=== PATIENT | female | born 1975 | race Caucasian/White ===

== ENCOUNTER 2017-10-02 08:00 | Day surgery (SDC) | payer OTHER, MEDICARE ==
[2017-10-02] MEDS ORDERED: HEPARIN 1000 UNITS/ML 10 ML INJ (10:10)
[2017-10-02] MEDS ORDERED: IOHEXOL 300MG/ML 30 ML BTL (10:10)
[2017-10-02] MEDS ORDERED: MEPERIDINE 25 MG INJ IV (10:30)
[2017-10-02] MEDS ORDERED: METOCLOPRAMIDE 10 MG INJ IV (10:30)
[2017-10-02] MEDS ORDERED: ONDANSETRON 4 MG INJ IV ×2 (10:30→12:30)
[2017-10-02] MEDS ORDERED: hydrALAzine 20 MG INJ IV (10:30)
[2017-10-02] MEDS ORDERED: EPHEDrine SULFATE 50 MG/5 ML SYG IV (10:30)
[2017-10-02] MEDS ORDERED: DIPHENHYDRAMINE 50 MG INJ IV (10:30)
[2017-10-02] MEDS ORDERED: FENTAnyl 50 MCG/ML VIAL IV ×3 (10:30)
[2017-10-02] MEDS ORDERED: LABETALOL HCL 20MG INJ IV (10:30)
[2017-10-02] MEDS ORDERED: MIDAZOLAM 1 MG/ML 2 ML INJ IV (10:30)
[2017-10-02] MEDS ORDERED: PROPOFOL 20 ML (10:32)
[2017-10-02] MEDS ORDERED: CEFAZOLIN 1 GM INJ (10:33)
[2017-10-02] MEDS ORDERED: MIDAZOLAM 1 MG/ML 2 ML INJ (10:33)
[2017-10-02] MEDS ORDERED: FENTAnyl 50 MCG/ML VIAL (10:33)
[2017-10-02] MEDS ORDERED: LIDOCAINE 1% (MPF) 30 ML INJ (11:10)
[2017-10-02] MEDS: HEPARIN 1000 UNITS/ML 10 ML INJ IRR (11:44)
[2017-10-02] MEDS: LIDOCAINE 1% (MPF) 30 ML INJ (11:44)
[2017-10-02] MEDS ORDERED: IBUPROFEN 600 MG TAB PO (12:30)
[2017-10-02] MEDS ORDERED: OXYCODONE/ACETAMINOPHEN (5/325) TAB PO (12:30)
== END 2017-10-02 14:01 ==
LOC: SDS 08:00
DX: T82.898A Other specified complication of vascular prosthetic devices, implants and grafts, initial encounter (principal); Y84.8 Other medical procedures as the cause of abnormal reaction of the patient, or of later complication, without mention of misadventure at the time of the procedure; I12.0 Hypertensive chronic kidney disease with stage 5 chronic kidney disease or end stage renal disease; N18.6 End stage renal disease; E11.9 Type 2 diabetes mellitus without complications
CPT/HCPCS: 36561; 71045

== ENCOUNTER 2017-10-11 21:08 | Inpatient (IN) | payer MEDICARE, OTHER ==
[2017-10-12] MEDS ORDERED: PENDING SANTYL ORDER FOR WOUND CARE XX (01:00)
[2017-10-12] MEDS ORDERED: FLUDROCORTISONE 0.1 MG TAB PO (01:00)
[2017-10-12] MEDS ORDERED: FAMOTIDINE 20 MG INJ IV (01:00)
[2017-10-12] MEDS ORDERED: MICONAZOLE 2% 57 GM Ointment TOP (01:00)
[2017-10-12] MEDS ORDERED: BISACODYL 10 MG SUPP PR (01:00)
[2017-10-12] MEDS ORDERED: DICYCLOMINE 10 MG CAP PO (01:00)
[2017-10-12] MEDS ORDERED: FUROSEMIDE 40 MG INJ IV (01:00)
[2017-10-12] MEDS ORDERED: GLUCAGON 1 MG INJ IM (01:30)
[2017-10-12] MEDS ORDERED: LEVALBUTEROL (NEB) 1.25 MG/0.5 ML AMP INH (01:30)
[2017-10-12] MEDS ORDERED: GLUCOSE GEL 15 GRAM TUBE BUCCAL (01:30)
[2017-10-12] MEDS ORDERED: DEXTROSE 50% 50 ML SYRINGE IV ×2 (01:30)
[2017-10-12] MEDS ORDERED: morphine LIQ (10 MG/5 ML) CUP PO (01:30)
[2017-10-12] MEDS ORDERED: GLUCOSE GEL 15 GRAM TUBE PO ×2 (01:30)
[2017-10-12] MEDS: ACCUCHECK AT 2AM (Patients on SS coverage) XX (02:00)
[2017-10-12 04:44] LABS: ADD UMIC YES; UR ASCORBIC ACID NEGATIVE (NEGATIVE); UR BACTERIA FEW /HPF (NONE SEEN); UR BILIRUBIN (Dip) NEGATIVE (NEGATIVE); UR BLOOD (Dip) 1+ mg/dL (NEGATIVE); UR BUDDING YEAST MANY /HPF (NONE SEEN); UR CLARITY SLIGHTLY CLOUDY (CLEAR); UR COLOR YELLOW (YELLOW); UR GLUCOSE (Dip) NEGATIVE (NEGATIVE); UR KETONES (Dip) NEGATIVE (NEGATIVE); UR LEUKOCYTE ESTERASE (Dip) 1+ Leu/ul (NEGATIVE); UR NITRITE (Dip) NEGATIVE (NEGATIVE); UR RBC 83 /HPF (0-5); UR SPECIFIC GRAVITY (Dip) 1.009 (1.003-1.030); UR SQUAMOUS EPITHELIAL CELL MODERATE /HPF (FEW); UR TOTAL PROTEIN (Dip) 2+ mg/dl (NEGATIVE); UR UROBILINOGEN (Dip) NEGATIVE (NEGATIVE); UR WBC 13 /HPF (0-5)
[2017-10-12] MEDS: PANTOPRAZOLE (EC) 40 MG TAB PO ×2 (05:40→18:00)
[2017-10-12] MEDS ORDERED: NPH, HUMAN INSULIN ISOPHANE 3ML VIAL SC (07:05)
[2017-10-12] MEDS: Insulin NOVOLOG SS MODERATE Algorithm (SS with meals and bedtime) SC ×4 (07:35→21:00)
[2017-10-12] MEDS: PYRIDOXINE 50 MG TAB PO (09:00)
[2017-10-12] MEDS: RIFAMPIN 300 MG CAP PO (09:00)
[2017-10-12] MEDS: ISONIAZID 300 MG TAB PO (09:00)
[2017-10-12] MEDS: LINAGLIPTIN 5 MG TABLET PO (09:00)
[2017-10-12 09:22] LABS: ADD MAN DIFF? NO
[2017-10-12 09:28] LABS: BASOPHIL # 0.1 10^3/ul (0.0-0.1); BASOPHILS % 0.4 % (0.0-2.0); EOSINOPHILS # 0.2 10^3/ul (0.0-0.5); EOSINOPHILS % 1.2 % (0.0-7.0); HEMATOCRIT 24.7 % (37.0-47.0); HEMOGLOBIN 7.4 g/dl (12.0-16.0); LYMPHOCYTES # 4.4 10^3/ul (0.8-2.9); LYMPHOCYTES % 32.6 % (15.0-51.0); MEAN CORPUSCULAR VOLUME 93.6 fl (82.0-101.0); MEAN PLATELET VOLUME 9.2 fl (7.4-10.4); MONOCYTE # 0.9 10^3/ul (0.3-0.9); MONOCYTES % 6.9 % (0.0-11.0); NEUTROPHIL # 7.9 10^3/ul (1.6-7.5); PLATELET COUNT 414 10^3/UL (140-415); RED BLOOD COUNT 2.64 10^6/ul (4.20-5.40); RED CELL DISTRIBUTION WIDTH 17.3 % (11.5-14.5)
[2017-10-12 09:28] LABS: WHITE BLOOD COUNT 13.5 10^3/ul (4.8-10.8)
[2017-10-12 09:49] LABS: ALANINE AMINOTRANSFERASE 32 IU/L (13-69); ALBUMIN 2.6 g/dl (3.3-4.9); ALBUMIN/GLOBULIN RATIO 0.74; ALKALINE PHOSPHATASE 122 IU/L (42-121); ANION GAP 10 (8-16); ASPARTATE AMINO TRANSFERASE 40 IU/L (15-46); BLOOD UREA NITROGEN 38 mg/dl (7-20); CALCIUM 8.8 mg/dl (8.4-10.2); CARBON DIOXIDE 30 mmol/L (21-31); CHLORIDE 102 mmol/L (97-110); CREATININE 5.31 mg/dl (0.44-1.00); GLUCOSE 84 mg/dl (70-220); POTASSIUM 3.8 mmol/L (3.5-5.1); SODIUM 138 mmol/L (135-144); TOTAL PROTEIN 6.1 g/dl (6.1-8.1)
[2017-10-12] MEDS: SEVELAMER CARBONATE 0.8 GM PKT PO ×3 (09:58→17:42)
[2017-10-12] MEDS: DOCUSATE SODIUM 100 MG CAP PO ×2 (09:58→22:01)
[2017-10-12] MEDS: LUBIPROSTONE 24 MCG CAP PO ×2 (09:58→22:45)
[2017-10-12] MEDS: METOCLOPRAMIDE 5 MG TAB PO ×3 (09:58→17:43)
[2017-10-12] MEDS: NYSTATIN 30 GM POWDER BTL TOP ×2 (09:59→22:14)
[2017-10-12] MEDS: NOVOLOG INSULIN ASPART SC ×3 (10:02→22:09)
[2017-10-12] MEDS: SUCRALFATE 1 GM TAB PO ×4 (10:59→22:00)
[2017-10-12] MEDS: predniSONE 20 MG TAB PO (10:59)
[2017-10-12] MEDS: NPH, HUMAN INSULIN ISOPHANE 3ML VIAL SC (11:10)
[2017-10-12 13:18] LABS: HEPATITIS B SURFACE ANTIGEN NEGATIVE (NEGATIVE)
[2017-10-12] MEDS: EPOETIN 10000 UNITS/1 ML INJ (ESRD) SC (17:44)
[2017-10-12] MEDS: HEPARIN 1000 UNITS/ML 10 ML INJ CATHETER ×2 (20:30→21:52)
[2017-10-12] MEDS: [UNRECOGNIZED DRUG - OTHER] TOP (21:00)
[2017-10-12] MEDS: SENNA TAB PO (22:01)
[2017-10-12] MEDS: INSULIN DETEMIR [LEVEMIR] 3ML CART SC (22:09)
[2017-10-12] MEDS: DIPHENHYDRAMINE 50 MG INJ IV (23:46)
[2017-10-13] MEDS: GUAIFENESIN 20 MG/ML 5ML CUP PO ×2 (00:07→15:16)
[2017-10-13] MEDS: ACCUCHECK AT 2AM (Patients on SS coverage) XX (02:00)
[2017-10-13] MEDS: PANTOPRAZOLE (EC) 40 MG TAB PO ×2 (06:15→18:06)
[2017-10-13] MEDS: SUCRALFATE 1 GM TAB PO ×4 (06:16→21:13)
[2017-10-13] MEDS: METOCLOPRAMIDE 5 MG TAB PO ×3 (06:16→17:08)
[2017-10-13] MEDS: Insulin NOVOLOG SS MODERATE Algorithm (SS with meals and bedtime) SC ×4 (07:35→21:00)
[2017-10-13] MEDS: NPH, HUMAN INSULIN ISOPHANE 3ML VIAL SC (08:35)
[2017-10-13] MEDS: NOVOLOG INSULIN ASPART SC ×3 (08:37→17:13)
[2017-10-13] MEDS: SEVELAMER CARBONATE 0.8 GM PKT PO ×3 (08:37→17:10)
[2017-10-13] MEDS: ISONIAZID 300 MG TAB PO (08:38)
[2017-10-13] MEDS: DOCUSATE SODIUM 100 MG CAP PO ×2 (08:38→21:08)
[2017-10-13] MEDS: LUBIPROSTONE 24 MCG CAP PO ×2 (08:38→21:08)
[2017-10-13] MEDS: RIFAMPIN 300 MG CAP PO (08:39)
[2017-10-13] MEDS: LINAGLIPTIN 5 MG TABLET PO (08:39)
[2017-10-13] MEDS: PYRIDOXINE 50 MG TAB PO (08:39)
[2017-10-13] MEDS: predniSONE 20 MG TAB PO (08:39)
[2017-10-13 09:15] LABS: WHITE BLOOD COUNT 7.4 10^3/ul (4.8-10.8)
[2017-10-13 09:15] LABS: ABNORMAL IP MESSAGE 1; HEMATOCRIT 22.6 % (37.0-47.0); MEAN CORPUSCULAR HEMOGLOBIN 27.8 pg (29.0-33.0); MEAN CORPUSCULAR HGB CONC 30.1 g/dl (32.0-37.0); MEAN CORPUSCULAR VOLUME 92.2 fl (82.0-101.0); MEAN PLATELET VOLUME 9.1 fl (7.4-10.4); PLATELET COUNT 358 10^3/UL (140-415); RED BLOOD COUNT 2.45 10^6/ul (4.20-5.40); RED CELL DISTRIBUTION WIDTH 17.2 % (11.5-14.5)
[2017-10-13 09:30] LABS: ANION GAP 9 (8-16); BLOOD UREA NITROGEN 15 mg/dl (7-20); CALCIUM 8.3 mg/dl (8.4-10.2); CARBON DIOXIDE 31 mmol/L (21-31); CHLORIDE 102 mmol/L (97-110); CREATININE 2.83 mg/dl (0.44-1.00); GLUCOSE 69 mg/dl (70-220); MAGNESIUM 1.9 mg/dl (1.7-2.5); PHOSPHORUS 2.5 mg/dl (2.5-4.9); POTASSIUM 3.6 mmol/L (3.5-5.1); SODIUM 138 mmol/L (135-144)
[2017-10-13 09:42] LABS: POSITIVE DIFF @See below
[2017-10-13 09:44] LABS: ADD MAN DIFF? YES; HEMOGLOBIN 6.8 g/dl (12.0-16.0)
[2017-10-13] MEDS: NYSTATIN 30 GM POWDER BTL TOP ×2 (10:15→21:14)
[2017-10-13] MEDS: ETHAMBUTOL 400 MG TAB PO (10:16)
[2017-10-13 11:17] LABS: ANISOCYTOSIS 2+ (0-0); EOSINOPHILS % (M) 6 % (0-7); LYMPHOCYTES #M 3.2 10^3/ul (0.8-2.9); LYMPHOCYTES % (M) 44 % (15-51); MICROCYTOSIS 2+ (0-0); MONOCYTE #M 0.5 10^3/ul (0.3-0.9); MONOCYTES % (M) 7 % (0-11); MYELOCYTES % (M) 1 % (0-0); PLATELET ESTIMATE NORMAL; POLYCHROMASIA 1+ (0-0); REACTIVE LYMPHOCYTES #M 0.2 10^3/ul (0.0-0.0); REACTIVE LYMPHOCYTES% (M) 3 % (0-0); SEGMENTED NEUTROPHILS (M) % 39 % (39-77); SMUDGE%M 26 % (0-0)
[2017-10-13] MEDS: EPOETIN 10000 UNITS/1 ML INJ (ESRD) SC (11:54)
[2017-10-13 14:01] LABS: HEMOGLOBIN 7.7 g/dl (12.0-16.0)
[2017-10-13 14:28] LABS: IRON 48 ug/dl (35-150)
[2017-10-13 14:37] LABS: % IRON SATURATION 25 % SAT (22-52); TOTAL IRON BINDING CAPACITY 189 ug/dl (241-421)
[2017-10-13] MEDS: [UNRECOGNIZED DRUG - OTHER] TOP (21:00)
[2017-10-13] MEDS: SENNA TAB PO (21:08)
[2017-10-13] MEDS: INSULIN DETEMIR [LEVEMIR] 3ML CART SC (21:11)
[2017-10-14] MEDS: ACCUCHECK AT 2AM (Patients on SS coverage) XX (02:00)
[2017-10-14] MEDS: PANTOPRAZOLE (EC) 40 MG TAB PO ×2 (05:41→18:00)
[2017-10-14] MEDS: SUCRALFATE 1 GM TAB PO ×4 (06:39→20:45)
[2017-10-14] MEDS: Insulin NOVOLOG SS MODERATE Algorithm (SS with meals and bedtime) SC ×4 (07:35→20:46)
[2017-10-14 07:42] LABS: WHITE BLOOD COUNT 9.1 10^3/ul (4.8-10.8)
[2017-10-14 07:42] LABS: ABNORMAL IP MESSAGE 1; HEMATOCRIT 22.7 % (37.0-47.0); MEAN CORPUSCULAR HEMOGLOBIN 28.2 pg (29.0-33.0); MEAN CORPUSCULAR HGB CONC 30.4 g/dl (32.0-37.0); MEAN CORPUSCULAR VOLUME 92.7 fl (82.0-101.0); MEAN PLATELET VOLUME 9.1 fl (7.4-10.4); PLATELET COUNT 368 10^3/UL (140-415); RED BLOOD COUNT 2.45 10^6/ul (4.20-5.40); RED CELL DISTRIBUTION WIDTH 17.2 % (11.5-14.5)
[2017-10-14 07:57] LABS: POSITIVE DIFF @See below
[2017-10-14 07:59] LABS: ADD MAN DIFF? YES; HEMOGLOBIN 6.9 g/dl (12.0-16.0)
[2017-10-14 08:09] LABS: ANION GAP 7 (8-16); BLOOD UREA NITROGEN 20 mg/dl (7-20); CALCIUM 8.3 mg/dl (8.4-10.2); CARBON DIOXIDE 30 mmol/L (21-31); CHLORIDE 103 mmol/L (97-110); CREATININE 3.71 mg/dl (0.44-1.00); GLUCOSE 87 mg/dl (70-220); PHOSPHORUS 2.5 mg/dl (2.5-4.9); POTASSIUM 3.4 mmol/L (3.5-5.1); SODIUM 137 mmol/L (135-144)
[2017-10-14] MEDS: NOVOLOG INSULIN ASPART SC ×4 (08:45→17:35)
[2017-10-14] MEDS: NPH, HUMAN INSULIN ISOPHANE 3ML VIAL SC (08:47)
[2017-10-14 09:42] LABS: ANISOCYTOSIS 1+ (0-0); LYMPHOCYTES #M 2.8 10^3/ul (0.8-2.9); LYMPHOCYTES % (M) 31 % (15-51); MICROCYTOSIS 1+ (0-0); MONOCYTE #M 0.8 10^3/ul (0.3-0.9); MONOCYTES % (M) 9 % (0-11); MYELOCYTES % (M) 1 % (0-0); PLATELET ESTIMATE NORMAL; POLYCHROMASIA 1+ (0-0); SEGMENTED NEUTROPHILS (M) % 59 % (39-77); SMUDGE%M 47 % (0-0)
[2017-10-14] MEDS: SEVELAMER CARBONATE 0.8 GM PKT PO ×3 (10:55→17:28)
[2017-10-14] MEDS: LUBIPROSTONE 24 MCG CAP PO ×2 (10:59→20:57)
[2017-10-14] MEDS: DOCUSATE SODIUM 100 MG CAP PO ×2 (10:59→20:45)
[2017-10-14] MEDS: ISONIAZID 300 MG TAB PO (10:59)
[2017-10-14] MEDS: predniSONE 20 MG TAB PO (10:59)
[2017-10-14] MEDS: PYRIDOXINE 50 MG TAB PO (10:59)
[2017-10-14] MEDS: RIFAMPIN 300 MG CAP PO (11:00)
[2017-10-14] MEDS: LINAGLIPTIN 5 MG TABLET PO (11:00)
[2017-10-14] MEDS: NYSTATIN 30 GM POWDER BTL TOP ×2 (11:00→20:53)
[2017-10-14] MEDS: METOCLOPRAMIDE 5 MG TAB PO ×3 (11:00→17:05)
[2017-10-14 14:03] LABS: HEMATOCRIT 26.5 % (37.0-47.0); HEMOGLOBIN 7.8 g/dl (12.0-16.0)
[2017-10-14] MEDS: SENNA TAB PO (20:45)
[2017-10-14] MEDS: INSULIN DETEMIR [LEVEMIR] 3ML CART SC (20:51)
[2017-10-15] MEDS: ACCUCHECK AT 2AM (Patients on SS coverage) XX (01:50)
[2017-10-15] MEDS: SOD CHLORIDE 0.9% 500 ML IV (03:07)
[2017-10-15] MEDS: PANTOPRAZOLE (EC) 40 MG TAB PO ×2 (06:25→19:36)
[2017-10-15] MEDS: METOCLOPRAMIDE 5 MG TAB PO ×3 (06:25→17:51)
[2017-10-15] MEDS: SUCRALFATE 1 GM TAB PO ×4 (06:25→20:01)
[2017-10-15 06:58] LABS: ADD MAN DIFF? NO
[2017-10-15 07:04] LABS: BASOPHIL # 0.1 10^3/ul (0.0-0.1); BASOPHILS % 0.6 % (0.0-2.0); EOSINOPHILS # 0.1 10^3/ul (0.0-0.5); EOSINOPHILS % 0.8 % (0.0-7.0); HEMATOCRIT 23.8 % (37.0-47.0); LYMPHOCYTES # 4.4 10^3/ul (0.8-2.9); LYMPHOCYTES % 49.9 % (15.0-51.0); MEAN CORPUSCULAR HEMOGLOBIN 27.6 pg (29.0-33.0); MEAN CORPUSCULAR HGB CONC 29.4 g/dl (32.0-37.0); MEAN CORPUSCULAR VOLUME 93.7 fl (82.0-101.0); MEAN PLATELET VOLUME 8.9 fl (7.4-10.4); MONOCYTE # 1.1 10^3/ul (0.3-0.9); NEUTROPHIL # 2.9 10^3/ul (1.6-7.5); NEUTROPHILS % 32.8 % (39.0-77.0); PLATELET COUNT 380 10^3/UL (140-415); RED BLOOD COUNT 2.54 10^6/ul (4.20-5.40); RED CELL DISTRIBUTION WIDTH 17.5 % (11.5-14.5)
[2017-10-15 07:04] LABS: WHITE BLOOD COUNT 8.8 10^3/ul (4.8-10.8)
[2017-10-15] MEDS: Insulin NOVOLOG SS MODERATE Algorithm (SS with meals and bedtime) SC ×4 (07:35→21:00)
[2017-10-15] MEDS: LINAGLIPTIN 5 MG TABLET PO (08:38)
[2017-10-15] MEDS: RIFAMPIN 300 MG CAP PO (08:38)
[2017-10-15] MEDS: SEVELAMER CARBONATE 0.8 GM PKT PO ×3 (08:38→17:51)
[2017-10-15] MEDS: DOCUSATE SODIUM 100 MG CAP PO ×2 (08:39→20:01)
[2017-10-15] MEDS: predniSONE 20 MG TAB PO (08:39)
[2017-10-15] MEDS: ISONIAZID 300 MG TAB PO (08:39)
[2017-10-15] MEDS: NOVOLOG INSULIN ASPART SC ×3 (08:41→17:54)
[2017-10-15] MEDS: NPH, HUMAN INSULIN ISOPHANE 3ML VIAL SC (08:42)
[2017-10-15] MEDS: NYSTATIN 30 GM POWDER BTL TOP ×2 (09:00→21:00)
[2017-10-15] MEDS: PYRIDOXINE 50 MG TAB PO (12:28)
[2017-10-15] MEDS: LUBIPROSTONE 24 MCG CAP PO ×2 (12:28→20:01)
[2017-10-15] MEDS ORDERED: EPOETIN 10000 UNITS/1 ML INJ (ESRD) SC (17:00)
[2017-10-15] MEDS: EPOETIN 10000 UNITS/1 ML INJ (ESRD) SC (17:49)
[2017-10-15] MEDS: EPOETIN 2000 UNITS/1 ML INJ (ESRD) SC (17:51)
[2017-10-15] MEDS: IVABRADINE HCL 5 MG TABLET PO (19:36)
[2017-10-15] MEDS: SENNA TAB PO (20:01)
[2017-10-15] MEDS: ACETAMINOPHEN 325 MG TAB PO (20:01)
[2017-10-15] MEDS: INSULIN DETEMIR [LEVEMIR] 3ML CART SC (20:06)
[2017-10-16] MEDS: ACCUCHECK AT 2AM (Patients on SS coverage) XX (02:00)
[2017-10-16] MEDS: PANTOPRAZOLE (EC) 40 MG TAB PO ×3 (05:54→18:00)
[2017-10-16 06:51] LABS: WHITE BLOOD COUNT 8.9 10^3/ul (4.8-10.8)
[2017-10-16 06:51] LABS: ABNORMAL IP MESSAGE 1; HEMATOCRIT 22.8 % (37.0-47.0); MEAN CORPUSCULAR HEMOGLOBIN 29.8 pg (29.0-33.0); MEAN CORPUSCULAR HGB CONC 30.7 g/dl (32.0-37.0); NUCLEATED RED BLOOD CELLS% 0.2 /100WBC (0.0-0.0); PLATELET COUNT 398 10^3/UL (140-415); RED BLOOD COUNT 2.35 10^6/ul (4.20-5.40); RED CELL DISTRIBUTION WIDTH 17.9 % (11.5-14.5)
[2017-10-16 06:55] LABS: POSITIVE DIFF @See below
[2017-10-16 06:56] LABS: ADD MAN DIFF? YES
[2017-10-16] MEDS: Insulin NOVOLOG SS MODERATE Algorithm (SS with meals and bedtime) SC ×5 (07:35→21:00)
[2017-10-16] MEDS: NOVOLOG INSULIN ASPART SC ×4 (08:40→17:41)
[2017-10-16] MEDS: NPH, HUMAN INSULIN ISOPHANE 3ML VIAL SC (08:49)
[2017-10-16] MEDS: METOCLOPRAMIDE 5 MG TAB PO ×5 (08:50→17:38)
[2017-10-16] MEDS: SUCRALFATE 1 GM TAB PO ×5 (08:50→20:59)
[2017-10-16] MEDS: SEVELAMER CARBONATE 0.8 GM PKT PO ×5 (08:50→21:05)
[2017-10-16] MEDS: DOCUSATE SODIUM 100 MG CAP PO ×2 (08:51→20:59)
[2017-10-16] MEDS: predniSONE 20 MG TAB PO (08:51)
[2017-10-16] MEDS: RIFAMPIN 300 MG CAP PO (08:51)
[2017-10-16] MEDS: ISONIAZID 300 MG TAB PO (08:51)
[2017-10-16] MEDS: LINAGLIPTIN 5 MG TABLET PO (08:52)
[2017-10-16] MEDS: IVABRADINE HCL 5 MG TABLET PO ×2 (08:57→21:00)
[2017-10-16] MEDS: ETHAMBUTOL 400 MG TAB PO ×3 (09:00→13:37)
[2017-10-16] MEDS: LUBIPROSTONE 24 MCG CAP PO ×3 (09:00→20:59)
[2017-10-16 09:17] LABS: ANISOCYTOSIS 2+ (0-0); BAND NEUTROPHILS % (M) 1 % (0-4); BASOPHILS % (M) 1 % (0-2); EOSINOPHILS % (M) 1 % (0-7); ERYTHROBLAST% (NRBC) (M) 1 % (0-0); GIANT THROMBO% (M) 1 % (0-0); LYMPHOCYTES #M 3.6 10^3/ul (0.8-2.9); LYMPHOCYTES % (M) 41 % (15-51); MICROCYTOSIS 2+ (0-0); MONOCYTE #M 0.2 10^3/ul (0.3-0.9); MONOCYTES % (M) 3 % (0-11); PLATELET ESTIMATE NORMAL; POLYCHROMASIA 3+ (0-0); SEG NEUT #M 4.7 10^3/ul (1.6-7.5); SEGMENTED NEUTROPHILS (M) % 53 % (39-77); SMUDGE%M 16 % (0-0)
[2017-10-16] MEDS: PYRIDOXINE 50 MG TAB PO (12:45)
[2017-10-16] MEDS: NYSTATIN 30 GM POWDER BTL TOP ×2 (12:57→21:00)
[2017-10-16] MEDS: MAGNESIUM HYDROXIDE 30ML CUP PO ×2 (13:36→13:44)
[2017-10-16] MEDS: HEPARIN 1000 UNITS/ML 10 ML INJ CATHETER (20:27)
[2017-10-16] MEDS: SENNA TAB PO (20:59)
[2017-10-16] MEDS: INSULIN DETEMIR [LEVEMIR] 3ML CART SC (21:04)
[2017-10-17] MEDS: GUAIFENESIN 20 MG/ML 5ML CUP PO ×2 (00:24→23:23)
[2017-10-17] MEDS: ACCUCHECK AT 2AM (Patients on SS coverage) XX (02:00)
[2017-10-17] MEDS: PANTOPRAZOLE (EC) 40 MG TAB PO ×2 (06:12→18:00)
[2017-10-17] MEDS: Insulin NOVOLOG SS MODERATE Algorithm (SS with meals and bedtime) SC ×4 (07:35→21:00)
[2017-10-17 07:41] LABS: HEMATOCRIT 23.1 % (37.0-47.0)
[2017-10-17] MEDS: SEVELAMER CARBONATE 0.8 GM PKT PO ×4 (08:36→21:08)
[2017-10-17] MEDS: IVABRADINE HCL 5 MG TABLET PO ×2 (08:36→21:09)
[2017-10-17] MEDS: METOCLOPRAMIDE 5 MG TAB PO ×3 (08:36→17:05)
[2017-10-17] MEDS: SUCRALFATE 1 GM TAB PO ×4 (08:36→21:09)
[2017-10-17] MEDS: NOVOLOG INSULIN ASPART SC ×3 (08:38→17:35)
[2017-10-17] MEDS: NPH, HUMAN INSULIN ISOPHANE 3ML VIAL SC (08:44)
[2017-10-17] MEDS: DOCUSATE SODIUM 100 MG CAP PO ×2 (08:45→21:14)
[2017-10-17] MEDS: predniSONE 10 MG TAB PO (08:45)
[2017-10-17] MEDS: LUBIPROSTONE 24 MCG CAP PO ×2 (08:45→21:09)
[2017-10-17] MEDS: ISONIAZID 300 MG TAB PO (08:45)
[2017-10-17] MEDS: PYRIDOXINE 50 MG TAB PO (08:45)
[2017-10-17] MEDS: RIFAMPIN 300 MG CAP PO (08:45)
[2017-10-17] MEDS: LINAGLIPTIN 5 MG TABLET PO (08:46)
[2017-10-17] MEDS: NYSTATIN 30 GM POWDER BTL TOP ×2 (09:00→21:00)
[2017-10-17] MEDS: SOD FERRIC GLUC COMPLX 125 MG in SOD CHLORIDE 0.9% 100 ML IVPB (13:12)
[2017-10-17] MEDS ORDERED: EPOETIN 4000 UNITS/1 ML INJ (ESRD) SC (17:00)
[2017-10-17] MEDS: EPOETIN 10000 UNITS/1 ML INJ (ESRD) SC (18:16)
[2017-10-17] MEDS: EPOETIN 2000 UNITS/1 ML INJ (ESRD) SC (18:17)
[2017-10-17] MEDS: SENNA TAB PO (21:09)
[2017-10-17] MEDS: INSULIN DETEMIR [LEVEMIR] 3ML CART SC (21:13)
[2017-10-18] MEDS: ACCUCHECK AT 2AM (Patients on SS coverage) XX (02:00)
[2017-10-18] MEDS: PANTOPRAZOLE (EC) 40 MG TAB PO ×2 (05:44→17:29)
[2017-10-18 07:30] LABS: HEMATOCRIT 22.9 % (37.0-47.0)
[2017-10-18 07:33] LABS: HEMOGLOBIN 6.8 g/dl (12.0-16.0)
[2017-10-18] MEDS: Insulin NOVOLOG SS MODERATE Algorithm (SS with meals and bedtime) SC ×4 (07:35→21:00)
[2017-10-18] MEDS: SEVELAMER CARBONATE 0.8 GM PKT PO ×3 (08:40→17:36)
[2017-10-18] MEDS: IVABRADINE HCL 5 MG TABLET PO ×2 (08:40→17:29)
[2017-10-18] MEDS: METOCLOPRAMIDE 5 MG TAB PO ×3 (08:40→17:29)
[2017-10-18] MEDS: SUCRALFATE 1 GM TAB PO ×3 (08:40→17:30)
[2017-10-18] MEDS: NOVOLOG INSULIN ASPART SC ×3 (08:47→17:34)
[2017-10-18] MEDS: NYSTATIN 30 GM POWDER BTL TOP (09:00)
[2017-10-18] MEDS: NPH, HUMAN INSULIN ISOPHANE 3ML VIAL SC (09:21)
[2017-10-18] MEDS: LUBIPROSTONE 24 MCG CAP PO (10:04)
[2017-10-18] MEDS: RIFAMPIN 300 MG CAP PO (10:05)
[2017-10-18] MEDS: predniSONE 10 MG TAB PO (10:05)
[2017-10-18] MEDS: LINAGLIPTIN 5 MG TABLET PO (10:05)
[2017-10-18] MEDS: PYRIDOXINE 50 MG TAB PO (10:06)
[2017-10-18] MEDS: DOCUSATE SODIUM 100 MG CAP PO (10:06)
[2017-10-18] MEDS: SOD FERRIC GLUC COMPLX 125 MG in SOD CHLORIDE 0.9% 100 ML IVPB (10:18)
[2017-10-18] MEDS: ETHAMBUTOL 400 MG TAB PO (10:21)
[2017-10-18] MEDS: ISONIAZID 300 MG TAB PO (10:26)
[2017-10-18] MEDS: morphine 2 MG INJ IV (12:26)
[2017-10-18 14:53] LABS: HEMATOCRIT 25.7 % (37.0-47.0); HEMOGLOBIN 7.6 g/dl (12.0-16.0)
[2017-10-18] MEDS: MIDODRINE 5 MG TAB PO (18:24)
[2017-10-18] MEDS: HEPARIN 1000 UNITS/ML 10 ML INJ CATHETER (23:51)
[2017-10-19] MEDS: LUBIPROSTONE 24 MCG CAP PO ×3 (00:10→21:23)
[2017-10-19] MEDS: SUCRALFATE 1 GM TAB PO ×5 (00:10→21:23)
[2017-10-19] MEDS: DOCUSATE SODIUM 100 MG CAP PO ×3 (00:10→21:23)
[2017-10-19] MEDS: SENNA TAB PO ×2 (00:11→21:23)
[2017-10-19] MEDS: INSULIN DETEMIR [LEVEMIR] 3ML CART SC ×2 (00:21→21:23)
[2017-10-19] MEDS: NYSTATIN 30 GM POWDER BTL TOP ×3 (00:25→21:25)
[2017-10-19] MEDS: ACCUCHECK AT 2AM (Patients on SS coverage) XX (02:00)
[2017-10-19] MEDS: PANTOPRAZOLE (EC) 40 MG TAB PO ×2 (06:51→17:22)
[2017-10-19] MEDS: Insulin NOVOLOG SS MODERATE Algorithm (SS with meals and bedtime) SC ×4 (07:35→21:00)
[2017-10-19] MEDS: IVABRADINE HCL 5 MG TABLET PO ×2 (08:24→16:35)
[2017-10-19] MEDS: SEVELAMER CARBONATE 0.8 GM PKT PO ×3 (08:24→16:35)
[2017-10-19] MEDS: METOCLOPRAMIDE 5 MG TAB PO ×3 (08:24→16:35)
[2017-10-19] MEDS: NOVOLOG INSULIN ASPART SC ×3 (08:34→16:43)
[2017-10-19] MEDS: NPH, HUMAN INSULIN ISOPHANE 3ML VIAL SC (08:49)
[2017-10-19] MEDS: PYRIDOXINE 50 MG TAB PO (08:49)
[2017-10-19] MEDS: predniSONE 10 MG TAB PO (08:50)
[2017-10-19] MEDS: ISONIAZID 300 MG TAB PO (08:50)
[2017-10-19] MEDS: RIFAMPIN 300 MG CAP PO (08:50)
[2017-10-19] MEDS: LINAGLIPTIN 5 MG TABLET PO (08:50)
[2017-10-19] MEDS: SOD FERRIC GLUC COMPLX 125 MG in SOD CHLORIDE 0.9% 100 ML IVPB (09:02)
[2017-10-19] MEDS ORDERED: morphine LIQ (10 MG/5 ML) CUP PO (17:00)
[2017-10-19] MEDS: EPOETIN 10000 UNITS/1 ML INJ (ESRD) SC (17:22)
[2017-10-19] MEDS: EPOETIN 2000 UNITS/1 ML INJ (ESRD) SC (17:23)
[2017-10-20] MEDS: ACCUCHECK AT 2AM (Patients on SS coverage) XX (02:00)
[2017-10-20] MEDS: PANTOPRAZOLE (EC) 40 MG TAB PO ×2 (05:44→17:46)
[2017-10-20 06:20] LABS: ADD MAN DIFF? NO
[2017-10-20 06:28] LABS: ABNORMAL IP MESSAGE 1; BASOPHILS % 0.4 % (0.0-2.0); EOSINOPHILS # 0.1 10^3/ul (0.0-0.5); EOSINOPHILS % 0.7 % (0.0-7.0); HEMATOCRIT 23.4 % (37.0-47.0); LYMPHOCYTES # 4.1 10^3/ul (0.8-2.9); LYMPHOCYTES % 43.4 % (15.0-51.0); MEAN CORPUSCULAR HEMOGLOBIN 28.4 pg (29.0-33.0); MEAN CORPUSCULAR HGB CONC 29.5 g/dl (32.0-37.0); MEAN CORPUSCULAR VOLUME 96.3 fl (82.0-101.0); MEAN PLATELET VOLUME 9.1 fl (7.4-10.4); MONOCYTE # 1.1 10^3/ul (0.3-0.9); MONOCYTES % 11.3 % (0.0-11.0); NEUTROPHIL # 3.8 10^3/ul (1.6-7.5); NEUTROPHILS % 40.2 % (39.0-77.0); NUCLEATED RED BLOOD CELLS% 0.4 /100WBC (0.0-0.0); PLATELET COUNT 323 10^3/UL (140-415); RED BLOOD COUNT 2.43 10^6/ul (4.20-5.40); RED CELL DISTRIBUTION WIDTH 20.6 % (11.5-14.5)
[2017-10-20 06:28] LABS: WHITE BLOOD COUNT 9.5 10^3/ul (4.8-10.8)
[2017-10-20 07:06] LABS: HEMOGLOBIN 6.9 g/dl (12.0-16.0); POSITIVE DIFF @See below
[2017-10-20 07:09] LABS: ALANINE AMINOTRANSFERASE 63 IU/L (13-69); ALBUMIN 2.4 g/dl (3.3-4.9); ALBUMIN/GLOBULIN RATIO 0.77; ALKALINE PHOSPHATASE 122 IU/L (42-121); ANION GAP 7 (8-16); ASPARTATE AMINO TRANSFERASE 46 IU/L (15-46); BLOOD UREA NITROGEN 9 mg/dl (7-20); CALCIUM 7.9 mg/dl (8.4-10.2); CARBON DIOXIDE 28 mmol/L (21-31); CHLORIDE 107 mmol/L (97-110); CREATININE 3.31 mg/dl (0.44-1.00); GLUCOSE 106 mg/dl (70-220); SODIUM 139 mmol/L (135-144); TOTAL PROTEIN 5.5 g/dl (6.1-8.1)
[2017-10-20 07:14] LABS: POTASSIUM 2.9 mmol/L (3.5-5.1)
[2017-10-20] MEDS: Insulin NOVOLOG SS MODERATE Algorithm (SS with meals and bedtime) SC ×4 (07:35→20:45)
[2017-10-20] MEDS: NOVOLOG INSULIN ASPART SC ×3 (09:25→17:49)
[2017-10-20] MEDS: ETHAMBUTOL 400 MG TAB PO (09:26)
[2017-10-20] MEDS: PYRIDOXINE 50 MG TAB PO (09:26)
[2017-10-20] MEDS: NPH, HUMAN INSULIN ISOPHANE 3ML VIAL SC (09:27)
[2017-10-20] MEDS: RIFAMPIN 300 MG CAP PO (09:27)
[2017-10-20] MEDS: IVABRADINE HCL 5 MG TABLET PO ×2 (09:27→18:35)
[2017-10-20] MEDS: LUBIPROSTONE 24 MCG CAP PO ×2 (09:27→20:45)
[2017-10-20] MEDS: LINAGLIPTIN 5 MG TABLET PO (09:28)
[2017-10-20] MEDS: SEVELAMER CARBONATE 0.8 GM PKT PO ×3 (09:28→17:46)
[2017-10-20] MEDS: METOCLOPRAMIDE 5 MG TAB PO ×3 (09:28→17:46)
[2017-10-20] MEDS: DOCUSATE SODIUM 100 MG CAP PO ×2 (09:28→20:44)
[2017-10-20] MEDS: SUCRALFATE 1 GM TAB PO ×4 (09:29→20:45)
[2017-10-20] MEDS: predniSONE 10 MG TAB PO (09:29)
[2017-10-20] MEDS: ISONIAZID 300 MG TAB PO (09:29)
[2017-10-20] MEDS: NYSTATIN 30 GM POWDER BTL TOP ×2 (09:30→20:45)
[2017-10-20] MEDS: SOD FERRIC GLUC COMPLX 125 MG in SOD CHLORIDE 0.9% 100 ML IVPB (10:26)
[2017-10-20] MEDS: POTASSIUM CHLORIDE (SR) 20 MEQ TAB PO (10:49)
[2017-10-20] MEDS: EPOETIN 10000 UNITS/1 ML INJ (ESRD) SC (12:22)
[2017-10-20] MEDS: CIPROFLOXACIN 250 MG TAB PO (17:47)
[2017-10-20] MEDS: GUAIFENESIN 20 MG/ML 5ML CUP PO (18:35)
[2017-10-20] MEDS: ACETAMINOPHEN 325 MG TAB PO (18:35)
[2017-10-20] MEDS: SENNA TAB PO (20:44)
[2017-10-20] MEDS: INSULIN DETEMIR [LEVEMIR] 3ML CART SC (20:50)
[2017-10-21] MEDS: ACCUCHECK AT 2AM (Patients on SS coverage) XX (02:00)
[2017-10-21] MEDS: PANTOPRAZOLE (EC) 40 MG TAB PO ×2 (06:28→18:15)
[2017-10-21] MEDS: CIPROFLOXACIN 250 MG TAB PO ×2 (06:28→18:15)
[2017-10-21] MEDS: Insulin NOVOLOG SS MODERATE Algorithm (SS with meals and bedtime) SC ×4 (07:35→19:59)
[2017-10-21] MEDS: NYSTATIN 30 GM POWDER BTL TOP ×2 (09:00→19:54)
[2017-10-21] MEDS: NPH, HUMAN INSULIN ISOPHANE 3ML VIAL SC (09:00)
[2017-10-21 10:22] LABS: ADD UMIC YES; UR ASCORBIC ACID NEGATIVE (NEGATIVE); UR BILIRUBIN (Dip) NEGATIVE (NEGATIVE); UR BLOOD (Dip) 1+ mg/dL (NEGATIVE); UR CLARITY CLEAR (CLEAR); UR COLOR STRAW (YELLOW); UR GLUCOSE (Dip) NEGATIVE (NEGATIVE); UR KETONES (Dip) NEGATIVE (NEGATIVE); UR LEUKOCYTE ESTERASE (Dip) NEGATIVE Leu/ul (NEGATIVE); UR NITRITE (Dip) NEGATIVE (NEGATIVE); UR RBC 1 /HPF (0-5); UR SPECIFIC GRAVITY (Dip) 1.005 (1.003-1.030); UR SQUAMOUS EPITHELIAL CELL FEW /HPF (FEW); UR TOTAL PROTEIN (Dip) 1+ mg/dl (NEGATIVE); UR UROBILINOGEN (Dip) NEGATIVE (NEGATIVE); UR WBC 6 /HPF (0-5)
[2017-10-21] MEDS: IVABRADINE HCL 5 MG TABLET PO ×2 (10:39→18:15)
[2017-10-21] MEDS: SEVELAMER CARBONATE 0.8 GM PKT PO ×3 (10:39→18:15)
[2017-10-21] MEDS: NOVOLOG INSULIN ASPART SC ×3 (10:39→17:44)
[2017-10-21] MEDS: METOCLOPRAMIDE 5 MG TAB PO ×3 (10:40→18:15)
[2017-10-21] MEDS: SUCRALFATE 1 GM TAB PO ×4 (10:40→19:53)
[2017-10-21] MEDS: LUBIPROSTONE 24 MCG CAP PO ×2 (10:59→19:53)
[2017-10-21] MEDS: DOCUSATE SODIUM 100 MG CAP PO ×2 (11:00→19:53)
[2017-10-21] MEDS: RIFAMPIN 300 MG CAP PO (11:00)
[2017-10-21] MEDS: HYDROCODONE/APAP (5/325) TAB PO (11:00)
[2017-10-21] MEDS: ISONIAZID 300 MG TAB PO (11:01)
[2017-10-21] MEDS: PYRIDOXINE 50 MG TAB PO (11:01)
[2017-10-21] MEDS: LINAGLIPTIN 5 MG TABLET PO (11:02)
[2017-10-21] MEDS: POTASSIUM CHLORIDE (SR) 20 MEQ TAB PO (11:02)
[2017-10-21] MEDS: predniSONE 10 MG TAB PO (11:02)
[2017-10-21] MEDS: SOD FERRIC GLUC COMPLX 125 MG in SOD CHLORIDE 0.9% 100 ML IVPB (11:05)
[2017-10-21] MEDS: SENNA TAB PO (19:54)
[2017-10-21] MEDS: INSULIN DETEMIR [LEVEMIR] 3ML CART SC (19:59)
[2017-10-22] MEDS: ACCUCHECK AT 2AM (Patients on SS coverage) XX (02:00)
[2017-10-22] MEDS: SUCRALFATE 1 GM TAB PO ×4 (06:26→23:08)
[2017-10-22] MEDS: METOCLOPRAMIDE 5 MG TAB PO ×3 (06:26→17:05)
[2017-10-22] MEDS: PANTOPRAZOLE (EC) 40 MG TAB PO ×2 (06:26→23:08)
[2017-10-22] MEDS: CIPROFLOXACIN 250 MG TAB PO ×2 (06:26→23:08)
[2017-10-22] MEDS: IVABRADINE HCL 5 MG TABLET PO ×2 (07:35→17:35)
[2017-10-22] MEDS: NOVOLOG INSULIN ASPART SC ×3 (08:19→17:35)
[2017-10-22] MEDS: Insulin NOVOLOG SS MODERATE Algorithm (SS with meals and bedtime) SC ×4 (08:47→21:00)
[2017-10-22] MEDS: NYSTATIN 30 GM POWDER BTL TOP ×2 (09:00→21:00)
[2017-10-22] MEDS: NPH, HUMAN INSULIN ISOPHANE 3ML VIAL SC (09:15)
[2017-10-22] MEDS: DOCUSATE SODIUM 100 MG CAP PO ×2 (09:17→23:08)
[2017-10-22] MEDS: POTASSIUM CHLORIDE (SR) 20 MEQ TAB PO (09:17)
[2017-10-22] MEDS: LUBIPROSTONE 24 MCG CAP PO ×2 (09:18→23:08)
[2017-10-22] MEDS: LINAGLIPTIN 5 MG TABLET PO (09:18)
[2017-10-22] MEDS: RIFAMPIN 300 MG CAP PO (09:18)
[2017-10-22] MEDS: ISONIAZID 300 MG TAB PO (09:18)
[2017-10-22] MEDS: SEVELAMER CARBONATE 0.8 GM PKT PO ×3 (09:18→17:35)
[2017-10-22] MEDS: predniSONE 10 MG TAB PO (09:18)
[2017-10-22] MEDS: PYRIDOXINE 50 MG TAB PO (09:18)
[2017-10-22 15:30] LABS: HAAIG REFLEX REFLEX FILED
[2017-10-22 16:31] LABS: HEPATITIS B SURFACE ANTIGEN NEGATIVE (NEGATIVE)
[2017-10-22 16:49] LABS: HEPATITIS B CORE ANTIBODY NEGATIVE (NEGATIVE); HEPATITIS C VIRAL ANTIBODY NEGATIVE (NEGATIVE)
[2017-10-22] MEDS: SOD CHLORIDE 0.9% 100 ML (18:00)
[2017-10-22] MEDS: IODIXANOL LOCM 100 ML BTL (18:00)
[2017-10-22] MEDS: EPOETIN 2000 UNITS/1 ML INJ (ESRD) SC (19:30)
[2017-10-22] MEDS: EPOETIN 10000 UNITS/1 ML INJ (ESRD) SC (19:31)
[2017-10-22] MEDS: ENOXAPARIN 80 MG/0.8 ML SYG SC (23:07)
[2017-10-22] MEDS: INSULIN DETEMIR [LEVEMIR] 3ML CART SC (23:07)
[2017-10-22] MEDS: SENNA TAB PO (23:08)
[2017-10-23] MEDS: GUAIFENESIN 20 MG/ML 5ML CUP PO ×3 (00:31→20:17)
[2017-10-23] MEDS: ACCUCHECK AT 2AM (Patients on SS coverage) XX (01:02)
[2017-10-23] MEDS: SUCRALFATE 1 GM TAB PO ×4 (05:57→20:17)
[2017-10-23] MEDS: METOCLOPRAMIDE 5 MG TAB PO ×3 (05:57→18:16)
[2017-10-23] MEDS: CIPROFLOXACIN 250 MG TAB PO ×2 (05:57→18:16)
[2017-10-23] MEDS: PANTOPRAZOLE (EC) 40 MG TAB PO ×2 (05:57→18:16)
[2017-10-23 07:26] LABS: ADD MAN DIFF? NO
[2017-10-23 07:30] LABS: WHITE BLOOD COUNT 10.8 10^3/ul (4.8-10.8)
[2017-10-23 07:30] LABS: ABNORMAL IP MESSAGE 1; BASOPHILS % 0.4 % (0.0-2.0); EOSINOPHILS # 0.1 10^3/ul (0.0-0.5); EOSINOPHILS % 0.6 % (0.0-7.0); HEMATOCRIT 25.5 % (37.0-47.0); HEMOGLOBIN 7.5 g/dl (12.0-16.0); LYMPHOCYTES # 4.6 10^3/ul (0.8-2.9); LYMPHOCYTES % 42.4 % (15.0-51.0); MEAN CORPUSCULAR HEMOGLOBIN 28.8 pg (29.0-33.0); MEAN CORPUSCULAR HGB CONC 29.4 g/dl (32.0-37.0); MEAN CORPUSCULAR VOLUME 98.1 fl (82.0-101.0); MEAN PLATELET VOLUME 9.2 fl (7.4-10.4); MONOCYTES % 9.1 % (0.0-11.0); NEUTROPHILS % 45.7 % (39.0-77.0); NUCLEATED RED BLOOD CELLS # 0.1 10^3/ul (0.0-0.0); NUCLEATED RED BLOOD CELLS% 0.5 /100WBC (0.0-0.0); PLATELET COUNT 300 10^3/UL (140-415); RED CELL DISTRIBUTION WIDTH 22.4 % (11.5-14.5)
[2017-10-23 07:34] LABS: POSITIVE DIFF @See below
[2017-10-23] MEDS: Insulin NOVOLOG SS MODERATE Algorithm (SS with meals and bedtime) SC ×4 (07:35→20:18)
[2017-10-23 07:46] LABS: INR 1.01; PROTIME 13.4 Sec (11.9-14.9)
[2017-10-23 07:56] LABS: ANION GAP 7 (8-16); BLOOD UREA NITROGEN 7 mg/dl (7-20); CARBON DIOXIDE 32 mmol/L (21-31); CHLORIDE 107 mmol/L (97-110); CREATININE 2.37 mg/dl (0.44-1.00); GLUCOSE 90 mg/dl (70-220); MAGNESIUM 1.8 mg/dl (1.7-2.5); POTASSIUM 3.8 mmol/L (3.5-5.1); SODIUM 142 mmol/L (135-144)
[2017-10-23] MEDS: SEVELAMER CARBONATE 0.8 GM PKT PO (08:18)
[2017-10-23] MEDS: IVABRADINE HCL 5 MG TABLET PO ×2 (08:18→18:16)
[2017-10-23] MEDS: NOVOLOG INSULIN ASPART SC ×3 (08:22→18:12)
[2017-10-23] MEDS: NYSTATIN 30 GM POWDER BTL TOP ×2 (09:00→20:25)
[2017-10-23] MEDS: RIFAMPIN 300 MG CAP PO (09:19)
[2017-10-23] MEDS: ISONIAZID 300 MG TAB PO (09:19)
[2017-10-23] MEDS: POTASSIUM CHLORIDE (SR) 20 MEQ TAB PO (09:19)
[2017-10-23] MEDS: LINAGLIPTIN 5 MG TABLET PO (09:19)
[2017-10-23] MEDS: LUBIPROSTONE 24 MCG CAP PO ×2 (09:19→20:17)
[2017-10-23] MEDS: DOCUSATE SODIUM 100 MG CAP PO ×2 (09:19→20:17)
[2017-10-23] MEDS: predniSONE 10 MG TAB PO (09:19)
[2017-10-23] MEDS: NPH, HUMAN INSULIN ISOPHANE 3ML VIAL SC (09:25)
[2017-10-23] MEDS: NEUTRA-PHOS 250 MG PACKET PO (10:15)
[2017-10-23] MEDS: ETHAMBUTOL 400 MG TAB PO (11:23)
[2017-10-23] MEDS: PYRIDOXINE 50 MG TAB PO (11:23)
[2017-10-23] MEDS: ONDANSETRON 4 MG INJ IV (11:27)
[2017-10-23 12:12] LABS: PT RATIO 1.1
[2017-10-23 12:13] LABS: INR 1.02; PROTIME 13.5 Sec (11.9-14.9)
[2017-10-23] MEDS ORDERED: ENOXAPARIN 80 MG/0.8 ML SYG SC (15:00)
[2017-10-23] MEDS ORDERED: WARFARIN 2 MG TAB PO (17:00)
[2017-10-23] MEDS: SENNA TAB PO (20:17)
[2017-10-23] MEDS: ACETAMINOPHEN 325 MG TAB PO (20:17)
[2017-10-23] MEDS: APIXABAN 5 MG TABLET PO (20:17)
[2017-10-23] MEDS: INSULIN DETEMIR [LEVEMIR] 3ML CART SC (20:25)
[2017-10-24] MEDS: ACCUCHECK AT 2AM (Patients on SS coverage) XX (01:29)
[2017-10-24] MEDS: GUAIFENESIN 20 MG/ML 5ML CUP PO (03:11)
[2017-10-24] MEDS: CIPROFLOXACIN 250 MG TAB PO ×2 (06:17→17:25)
[2017-10-24] MEDS: SUCRALFATE 1 GM TAB PO ×4 (06:17→20:35)
[2017-10-24] MEDS: PANTOPRAZOLE (EC) 40 MG TAB PO ×2 (06:17→18:11)
[2017-10-24] MEDS: METOCLOPRAMIDE 5 MG TAB PO ×3 (06:17→17:25)
[2017-10-24] MEDS: Insulin NOVOLOG SS MODERATE Algorithm (SS with meals and bedtime) SC ×4 (07:35→20:44)
[2017-10-24 08:52] LABS: INR 0.98; PROTIME 13.1 Sec (11.9-14.9)
[2017-10-24 08:55] LABS: ANION GAP 11 (8-16); BLOOD UREA NITROGEN 11 mg/dl (7-20); CALCIUM 8.3 mg/dl (8.4-10.2); CARBON DIOXIDE 27 mmol/L (21-31); CHLORIDE 110 mmol/L (97-110); CREATININE 3.46 mg/dl (0.44-1.00); GLUCOSE 90 mg/dl (70-220); MAGNESIUM 1.9 mg/dl (1.7-2.5); PHOSPHORUS 1.6 mg/dl (2.5-4.9); POTASSIUM 4.5 mmol/L (3.5-5.1); SODIUM 143 mmol/L (135-144)
[2017-10-24] MEDS: NOVOLOG INSULIN ASPART SC ×3 (09:51→17:23)
[2017-10-24] MEDS: NPH, HUMAN INSULIN ISOPHANE 3ML VIAL SC (09:56)
[2017-10-24] MEDS: DOCUSATE SODIUM 100 MG CAP PO ×2 (09:58→10:19)
[2017-10-24] MEDS: APIXABAN 5 MG TABLET PO ×2 (09:58→10:19)
[2017-10-24] MEDS: IVABRADINE HCL 5 MG TABLET PO ×2 (09:58→18:07)
[2017-10-24] MEDS: BENZONATATE 100 MG CAP PO (10:17)
[2017-10-24] MEDS: ISONIAZID 300 MG TAB PO (10:18)
[2017-10-24] MEDS: RIFAMPIN 300 MG CAP PO (10:18)
[2017-10-24] MEDS: predniSONE 10 MG TAB PO (10:18)
[2017-10-24] MEDS: LINAGLIPTIN 5 MG TABLET PO (10:19)
[2017-10-24] MEDS: PYRIDOXINE 50 MG TAB PO (10:19)
[2017-10-24] MEDS: POTASSIUM CHLORIDE (SR) 20 MEQ TAB PO (10:20)
[2017-10-24] MEDS: NYSTATIN 30 GM POWDER BTL TOP (10:21)
[2017-10-24] MEDS: LUBIPROSTONE 24 MCG CAP PO ×2 (10:21→20:35)
[2017-10-24] MEDS: EPOETIN 10000 UNITS/1 ML INJ (ESRD) SC (18:16)
[2017-10-24] MEDS: EPOETIN 2000 UNITS/1 ML INJ (ESRD) SC (18:18)
[2017-10-24] MEDS: INSULIN DETEMIR [LEVEMIR] 3ML CART SC (20:42)
[2017-10-24] MEDS: ACETAMINOPHEN 325 MG TAB PO (20:46)
[2017-10-25] MEDS: SENNA TAB PO ×2 (00:02→21:00)
[2017-10-25] MEDS: NYSTATIN 30 GM POWDER BTL TOP ×3 (00:02→21:00)
[2017-10-25] MEDS: ACCUCHECK AT 2AM (Patients on SS coverage) XX (02:30)
[2017-10-25] MEDS: PANTOPRAZOLE (EC) 40 MG TAB PO ×2 (05:28→17:55)
[2017-10-25] MEDS: CIPROFLOXACIN 250 MG TAB PO (05:28)
[2017-10-25 07:23] LABS: ADD MAN DIFF? NO
[2017-10-25 07:28] LABS: WHITE BLOOD COUNT 8.7 10^3/ul (4.8-10.8)
[2017-10-25 07:28] LABS: ABNORMAL IP MESSAGE 1; BASOPHILS % 0.5 % (0.0-2.0); EOSINOPHILS # 0.1 10^3/ul (0.0-0.5); EOSINOPHILS % 1.1 % (0.0-7.0); HEMOGLOBIN 7.4 g/dl (12.0-16.0); LYMPHOCYTES # 3.9 10^3/ul (0.8-2.9); LYMPHOCYTES % 44.3 % (15.0-51.0); MEAN CORPUSCULAR HEMOGLOBIN 28.6 pg (29.0-33.0); MEAN CORPUSCULAR HGB CONC 28.5 g/dl (32.0-37.0); MEAN CORPUSCULAR VOLUME 100.4 fl (82.0-101.0); MEAN PLATELET VOLUME 9.2 fl (7.4-10.4); MONOCYTE # 0.8 10^3/ul (0.3-0.9); MONOCYTES % 9.4 % (0.0-11.0); NEUTROPHIL # 3.8 10^3/ul (1.6-7.5); NEUTROPHILS % 43.2 % (39.0-77.0); NUCLEATED RED BLOOD CELLS% 0.2 /100WBC (0.0-0.0); PLATELET COUNT 335 10^3/UL (140-415); RED BLOOD COUNT 2.59 10^6/ul (4.20-5.40); RED CELL DISTRIBUTION WIDTH 22.3 % (11.5-14.5)
[2017-10-25 07:30] LABS: POSITIVE DIFF @See below
[2017-10-25] MEDS: Insulin NOVOLOG SS MODERATE Algorithm (SS with meals and bedtime) SC ×4 (07:35→21:00)
[2017-10-25 07:57] LABS: ANION GAP 8 (8-16); BLOOD UREA NITROGEN 15 mg/dl (7-20); CALCIUM 8.6 mg/dl (8.4-10.2); CARBON DIOXIDE 24 mmol/L (21-31); CHLORIDE 113 mmol/L (97-110); CREATININE 4.17 mg/dl (0.44-1.00); GLUCOSE 93 mg/dl (70-220); PHOSPHORUS 1.9 mg/dl (2.5-4.9); POTASSIUM 4.9 mmol/L (3.5-5.1); SODIUM 140 mmol/L (135-144)
[2017-10-25] MEDS: NOVOLOG INSULIN ASPART SC ×3 (08:19→17:55)
[2017-10-25] MEDS: SUCRALFATE 1 GM TAB PO ×4 (08:25→21:25)
[2017-10-25] MEDS: IVABRADINE HCL 5 MG TABLET PO ×2 (08:25→17:55)
[2017-10-25] MEDS: METOCLOPRAMIDE 5 MG TAB PO ×3 (08:25→17:55)
[2017-10-25] MEDS: LUBIPROSTONE 24 MCG CAP PO ×2 (09:12→22:00)
[2017-10-25] MEDS: PYRIDOXINE 50 MG TAB PO (09:12)
[2017-10-25] MEDS: RIFAMPIN 300 MG CAP PO (09:12)
[2017-10-25] MEDS: LINAGLIPTIN 5 MG TABLET PO (09:12)
[2017-10-25] MEDS: ISONIAZID 300 MG TAB PO (09:12)
[2017-10-25] MEDS: predniSONE 10 MG TAB PO (09:12)
[2017-10-25] MEDS: DOCUSATE SODIUM 100 MG CAP PO ×2 (09:13→21:00)
[2017-10-25] MEDS: APIXABAN 5 MG TABLET PO ×2 (09:19→21:25)
[2017-10-25] MEDS: NPH, HUMAN INSULIN ISOPHANE 3ML VIAL SC (09:22)
[2017-10-25] MEDS: ETHAMBUTOL 400 MG TAB PO (12:09)
[2017-10-25] MEDS: NEUTRA-PHOS 250 MG PACKET PO ×2 (12:09→21:25)
[2017-10-25] MEDS: ACETAMINOPHEN 325 MG TAB PO (12:30)
[2017-10-25] MEDS: HEPARIN 1000 UNITS/ML 10 ML INJ CATHETER (21:24)
[2017-10-25] MEDS: INSULIN DETEMIR [LEVEMIR] 3ML CART SC (21:28)
[2017-10-25] MEDS: MIDODRINE 5 MG TAB PO (22:04)
[2017-10-26] MEDS: ACCUCHECK AT 2AM (Patients on SS coverage) XX (02:00)
[2017-10-26] MEDS: GUAIFENESIN 20 MG/ML 5ML CUP PO (06:56)
[2017-10-26] MEDS: PANTOPRAZOLE (EC) 40 MG TAB PO (06:56)
[2017-10-26] MEDS: METOCLOPRAMIDE 5 MG TAB PO ×2 (06:56→12:34)
[2017-10-26] MEDS: SUCRALFATE 1 GM TAB PO ×2 (06:56→12:34)
[2017-10-26] MEDS: Insulin NOVOLOG SS MODERATE Algorithm (SS with meals and bedtime) SC ×2 (07:35→12:36)
[2017-10-26] MEDS: LUBIPROSTONE 24 MCG CAP PO (08:19)
[2017-10-26] MEDS: NEUTRA-PHOS 250 MG PACKET PO (08:19)
[2017-10-26] MEDS: IVABRADINE HCL 5 MG TABLET PO (08:19)
[2017-10-26] MEDS: predniSONE 10 MG TAB PO (08:19)
[2017-10-26] MEDS: RIFAMPIN 300 MG CAP PO (08:20)
[2017-10-26] MEDS: LINAGLIPTIN 5 MG TABLET PO (08:20)
[2017-10-26] MEDS: APIXABAN 5 MG TABLET PO (08:20)
[2017-10-26] MEDS: PYRIDOXINE 50 MG TAB PO (08:20)
[2017-10-26] MEDS: ISONIAZID 300 MG TAB PO (08:21)
[2017-10-26] MEDS: NPH, HUMAN INSULIN ISOPHANE 3ML VIAL SC (08:22)
[2017-10-26] MEDS: NOVOLOG INSULIN ASPART SC ×2 (08:22→12:36)
[2017-10-26] MEDS: NYSTATIN 30 GM POWDER BTL TOP (08:25)
[2017-10-26] MEDS: DOCUSATE SODIUM 100 MG CAP PO (08:25)
== END 2017-10-26 13:54 | disposition home health service (06) | DRG 91 ==
LOC: VRC 21:08
PROVIDERS: Physical Medicine & Rehabilitation
PROC: F07Z9ZZ Gait Training/Functional Ambulation Treatment (ICD-10-PCS; principal; 2017-10-12)
PROC: F07Z5ZZ Bed Mobility Treatment (ICD-10-PCS; 2017-10-12)
PROC: F07Z8ZZ Transfer Training Treatment (ICD-10-PCS; 2017-10-12)
PROC: F08Z2ZZ Grooming/Personal Hygiene Treatment (ICD-10-PCS; 2017-10-12)
PROC: F08Z1ZZ Dressing Techniques Treatment (ICD-10-PCS; 2017-10-12)
PROC: F08Z0ZZ Bathing/Showering Techniques Treatment (ICD-10-PCS; 2017-10-12)
PROC: 5A1D70Z Performance of Urinary Filtration, Intermittent, Less than 6 Hours Per Day (ICD-10-PCS; 2017-10-12)
DX: G72.81 Critical illness myopathy (principal); N18.6 End stage renal disease; I26.99 Other pulmonary embolism without acute cor pulmonale; I13.2 Hypertensive heart and chronic kidney disease with heart failure and with stage 5 chronic kidney disease, or end stage renal disease; J80 Acute respiratory distress syndrome; A18.1 Tuberculosis of genitourinary system; L10.0 Pemphigus vulgaris; I50.30 Unspecified diastolic (congestive) heart failure; N39.0 Urinary tract infection, site not specified; E11.22 Type 2 diabetes mellitus with diabetic chronic kidney disease; E11.40 Type 2 diabetes mellitus with diabetic neuropathy, unspecified; E66.01 Morbid (severe) obesity due to excess calories; F41.9 Anxiety disorder, unspecified; D63.1 Anemia in chronic kidney disease; R53.81 Other malaise; R00.0 Tachycardia, unspecified; Z74.09 Other reduced mobility; I95.1 Orthostatic hypotension; K21.9 Gastro-esophageal reflux disease without esophagitis; K29.70 Gastritis, unspecified, without bleeding; I49.9 Cardiac arrhythmia, unspecified; E78.5 Hyperlipidemia, unspecified; D50.9 Iron deficiency anemia, unspecified; B96.89 Other specified bacterial agents as the cause of diseases classified elsewhere; Z68.35 Body mass index [BMI] 35.0-35.9, adult; Z99.2 Dependence on renal dialysis; Z79.4 Long term (current) use of insulin; Z79.899 Other long term (current) drug therapy; Z86.19 Personal history of other infectious and parasitic diseases
CPT/HCPCS: 71045; 71250; 71275; 80048; 80053; 81001; 82728; 82962; 83540; 83735; 84100; 85014; 85018; 85025; 85610; 86704; 86709; 86803; 87081; 87086; 87340; 90935; 93970; 94760; 97110; 97112; 97116; 97150; 97163; 97167; 97530; 97535